=== PATIENT | male | born 1950 | race Caucasian/White ===

== ENCOUNTER 2019-08-18 11:18 | Emergency (ER) | payer MEDICARE, OTHER, SELFPAY ==
[2019-08-18 11:10] VITALS: BP 120/72; PULSE 46; RESP 16; TEMP 36.6; O2SAT 98
--- NOTE | 2019-08-18 11:25 | DI.RAD.S_ITS ---
PROCEDURE: XR CHEST 1V INDICATIONS: chest pain TECHNIQUE: One view of the chest was acquired. COMPARISON: None. FINDINGS: Surgical changes and devices: None. Lungs and pleura: Mild patchy bilateral perihilar opacities. No pleural effusions or pneumothorax. Mediastinum: Mediastinal contours appear normal. Heart size is normal. Bones and chest wall: No suspicious bony lesions. Overlying soft tissues appear unremarkable. IMPRESSION: Mild atypical pneumonia. Dictated by: Elke Means M.D. on 08/18/2019 at 11:44 Approved by: Elke Means M.D. on 08/18/2019 at 11:44
[2019-08-18 11:32] LABS: Add Manual Diff / Slide Review NO; Basophils Absolute Auto 0 /uL (0-100); Basophils Percent Auto 0.5 % (0-2); Eosinophils Absolute Auto 300 /uL (0-450); Eosinophils Percent Auto 4.8 % (2-4); Hematocrit 47.1 % (41-53); Hemoglobin 16.2 g/dL (13.5-17.5); Lymphocytes Absolute Auto 2200 /uL (1100-4500); Lymphocytes Percent Auto 33.9 % (25-40); Mean Corpuscular HGB Conc 34.3 % (30-36); Mean Corpuscular Hemoglobin 30.2 PG (26-34); Monocytes Absolute Auto 600 /uL (0-900); Monocytes Percent Auto 9.1 % (3-14); Neutrophils Absolute Auto 3300 /uL (1500-7000); Neutrophils Percent Auto 51.7 % (50-75); Platelet Count 201 X10^3/uL (150-400); Red Blood Cell Count 5.36 X10^6/uL (4.5-5.9); Red Cell Distribution Width 13.5 % (11.6-14.8); White Blood Cell Count 6.3 X10^3/uL (4.5-11.0)
[2019-08-18 11:47] LABS: Alanine Aminotransferase 39 IU/L (<50); Albumin 4.8 g/dL (3.5-5.0); Albumin Globulin Ratio 1.5 (1.0-2.8); Alkaline Phosphatase 81 U/L (38-126); Aspartate Aminotransferase 37 IU/L (17-59); BUN Creatinine Ratio 28.8 (6-22); Bilirubin Total 0.7 mg/dL (0.2-1.3); Blood Urea Nitrogen 23 mg/dL (9-20); Calcium 9.7 mg/dL (8.4-10.2); Carbon Dioxide 29 mmol/L (22-32); Chloride 102 mmol/L (98-107); Creatine Kinase 140 U/L (55-170); Estimated Glomerular Filt Rate > 60.0 mL/min (>60); Globulin 3.3 g/dL (1.7-4.1); Glucose 100 mg/dL (80-110); HEMOLYSIS < 15 (0-50); Lipase 68 U/L (23-300); Sodium 140 mmol/L (137-145); Total Protein 8.1 g/dL (6.3-8.2)
[2019-08-18 11:59] LABS: Troponin I < 0.012 ng/mL (0.01-0.034)
[2019-08-18 12:02] LABS: Creatine Kinase MB 2.81 ng/mL (<2.37)
--- NOTE | 2019-08-18 12:04 | ED_ITS ---
HPI - Chest Pain General Chief Complaint: Chest Pain Stated Complaint: Lightheaded w/CP Time Seen by Provider: 08/18/19 11:25 Source: patient Mode of arrival: EMS History of Present Illness HPI narrative: 68-year-old gentleman with a history of prostate cancer being monitored with active surveillance at this time presents after 2 episodes of near-syncope while on the [place] traveling from work this this morning. He reports that he was in his usual state of excellent health getting on the very shortly there after noticed that he was feeling weaker and almost going to pass out. His describes him as getting pale he describes himself as feeling slightly dyspneic there was no diaphoresis. When questioned about chest pain he describes a slight tightness in the left chest. He has had episodes of chest tightness previously and has been evaluated by a lead pony rider and was previously felt to be chest wall pain. He has no history of diabetes, hypertension, hyperlipidemia, obesity, tobacco abuse, alcohol use disorder. He went on to have 2 further episodes of near-syncope feeling with paleness mild dyspnea and associated bradycardia when checked by a staff aboard the [place]. He notes that he frequently has a bradycardic heart rate. He has done some distance training in the past now exercises regularly but not offered distance running or biking. He notes that heart rate in the 40s is not necessarily unusual for him. Related Data Home Medications Medication Instructions Recorded Confirmed aspirin 81 mg PO DAILY 08/18/19 08/18/19 cetirizine [Aller-Yazmin] 10 mg PO DAILY 08/18/19 08/18/19 finasteride 5 mg PO DAILY 08/18/19 08/18/19 Previous Rx's Medication Instructions Recorded azithromycin See Rx Instructions .ROUTE 08/18/19 .COMPLEX #6 tab Allergies Allergy/AdvReac Type Severity Reaction Status Date / Time No Known Drug Allergies Allergy Verified 08/18/19 12:20 Review of Systems Review of Systems Narrative: No fever cough cold chills or recent illnesses He does note that over the past 2-3 months he has been noticing more exertional dyspnea without any associated chest pain ROS Unobtainable: All systems reviewed & are unremarkable except as noted in HPI and below Patient History Surgical History Status post breast lumpectomy Family History Brother Age: 63 Stroke ASD (atrial septal defect) Father Cancer Mother Mental health problem Social History Smoking Status: Never smoker Smoking Status: Never smoker alcohol intake frequency: 0-2 drinks per day Substance Use Type: does not use Exam Narrative Exam Narrative: General: Healthy appearing, in no acute distress. Able to give a complete and coherent history. Well-nourished well-developed HEENT: Moist mucous membranes, normal sclera with reactive pupils, Neck: No JVD, supple Respiratory: Lungs are clear to auscultation, no wheezing no rales no rhonchi. Full and symmetrical air movement Cardiac: Regular rate and rhythm no murmurs no bruits Abdomen: Soft nontender good bowel tones, no flank pain Skin: Warm and dry, no rashes Neurologic: Grossly neurologically intact with no obvious asymmetries or abnormalities Extremities: No trauma, well perfused Psych: Cooperative, appropriate insight and affect Initial Vital Signs Initial Vital Signs: Vital Signs Temperature 97.8 F 08/18/19 11:10 Pulse Rate 46 L 08/18/19 11:10 Respiratory Rate 16 08/18/19 11:10 Blood Pressure 120/72 08/18/19 11:10 Pulse Oximetry 98 08/18/19 11:10 Course Orders Ordered: ED Orders 08/18/19 11:15 Complete Blood Count AUTO DIFF Stat Comprehensive Metabolic Panel Stat Lipase Stat Troponin & CK Cardiac Panel Stat 08/18/19 11:18 EKG-12 Lead Stat 08/18/19 11:25 XR chest 1V Stat 08/18/19 13:24 Troponin I Stat Sodium Chloride (Normal Saline 0.9%) 1,000 mls @ 150 mls/hr IV CONT AGUSTO Last Admin: 08/18/19 12:21 Dose: 150 mls/hr Documented by: BTONER Discontinued Medications Aspirin (Aspirin Chew) 324 mg PO NOW ONE Stop: 08/18/19 11:26 Last Admin: 08/18/19 11:45 Dose: Not Given Documented by: BTONER Vital Signs Vital signs: Vital Signs - 8 hr 08/18/19 11:10 08/18/19 12:30 08/18/19 13:57 Temperature 97.8 F Pulse Rate 46 L 43 L 46 L Respiratory Rate 16 9 L 18 Blood Pressure 120/72 Blood Pressure [Left Arm] 122/66 104/72 Pulse Oximetry 98 100 98 MDM - Chest Pain Medical Records Data Attestation: I reviewed the patient's medical records. Lab Data Attestation: I reviewed the patient's lab results. Lab results narrative: Initial troponin is unremarkable. Will repeat at 1:30 a.m.. Will continue cardiac monitoring. Showing episodes of asymptomatic bradycardia, sinus, into the mid 30s Repeat troponin is equally unremarkable Result diagrams: 08/18/19 11:15 08/18/19 11:15 Labs: Lab Results 08/18/19 08/18/19 08/18/19 Range/Units 11:15 11:15 13:24 WBC 6.3 (4.5-11.0) X10^3/uL RBC 5.36 (4.5-5.9) X10^6/uL Hgb 16.2 (13.5-17.5) g/dL Hct 47.1 (41-53) % MCV 88.0 (80-100) fL MCH 30.2 (26-34) PG MCHC 34.3 (30-36) % RDW 13.5 (11.6-14.8) % Plt Count 201 (150-400) X10^3/uL Neut % (Auto) 51.7 (50-75) % Lymph % (Auto) 33.9 (25-40) % Becker % (Auto) 9.1 (3-14) % Eos % (Auto) 4.8 H (2-4) % Baso % (Auto) 0.5 (0-2) % Neut # (Auto) 3300 (6324-9082) /uL Lymph # (Auto) 2200 (0188-2323) /uL Becker # (Auto) 600 (0-900) /uL Eos # (Auto) 300 (0-450) /uL Baso # (Auto) 0 (0-100) /uL Sodium 140 (137-145) mmol/L Potassium 4.0 (3.4-5.1) mmol/L Chloride 102 (98-107) mmol/L Carbon Dioxide 29 (22-32) mmol/L BUN 23 H (9-20) mg/dL Creatinine 0.80 (0.66-1.25) mg/dL Estimated GFR > 60.0 (>60) mL/min BUN/Creatinine Ratio 28.8 H (6-22) Glucose 100 (80-110) mg/dL Calcium 9.7 (8.4-10.2) mg/dL Total Bilirubin 0.7 (0.2-1.3) mg/dL AST 37 (17-59) IU/L ALT 39 (<50) IU/L Alkaline Phosphatase 81 (38-126) U/L Total Creatine Kinase 140 (55-170) U/L CK-MB (CK-2) 2.81 H (<2.37) ng/mL CK-MB (CK-2) Rel Index 2.0 (1.5-5.0) % Troponin I < 0.012 < 0.012 (0.01-0.034) ng/mL Total Protein 8.1 (6.3-8.2) g/dL Albumin 4.8 (3.5-5.0) g/dL Globulin 3.3 (1.7-4.1) g/dL Albumin/Globulin Ratio 1.5 (1.0-2.8) Lipase 68 (23-300) U/L Urine Dip Bedside Urine Glucose Negative Bedside Urine Bilirubin - Negative Bedside Urine Ketone - Negative Urine Specific [place] 1.005 Bedside Urine Occult Blood - Negative Bedside Urine pH 7.5 Bedside Urine Protein - Negative Bedside Urine Urobilinogen - Negative Bedside Urine Nitrite - Negative Bedside Urine Leukocytes - Negative Esterase Imaging Data Chest x-ray: Attestation: I personally reviewed and interpreted this imaging study as follows: Radiologist's impression: IMPRESSION: Mild atypical pneumonia. Dictated by: Elke Means M.D. on 08/18/2019 at 11:44 MDM Narrative Medical decision making narrative: 68-year-old gentleman who over the past number of weeks has noticed increasing exertional dyspnea. Official radiology read suggests an atypical pneumonia and there certainly are more findings in the right lung booth in the left in reviewing his chest x-ray. There is no significant findings on physical exam, no elevated white blood cell count and normal oxygenation. His troponin and repeat are unremarkable. His heart score is: HEART Pathway for Early Discharge in Acute Chest Pain from [facility] on 08/18/2019 RESULT SUMMARY: 1 points HEART Pathway Score Low risk 0.9?1.7% 30-day MACE Repeat troponin at 3 hours and if negative, discharge home with outpatient follow-up. INPUTS: History ?> 0 = Slightly suspicious EKG ?> 0 = Normal Age ?> 1 = 45-64 Risk factors ?> 0 = No known risk factors Initial troponin ?> 0 = ?normal limit Given the exertional dyspnea and possibility of an atypical pneumonia will place him on a course of azithromycin and suggest follow-up with his primary care physician once he has returned from his [place] trip. I think that the asymptomatic bradycardia is true yet unrelated to his episodes today and represents his baseline Discharge Plan Departure Patient Disposition: Home Clinical Impression: Atypical pneumonia, Bradycardia Instructions: DI for Chest Pain, DI for Atypical Pneumonia Activity Restrictions/Additional Instructions: Thank you for coming in today. Your heart rate is intermittently low however I believe that this is close to her baseline and is not causing your symptoms. Today I found no evidence of heart attack or acute heart syndromes. Your chest x-ray was interpreted as having an atypical pneumonia on the right side. If that is in fact the case, that may explain some of the shortness of breath you've experienced over the last few weeks. Am going to suggest that we place you on a course of azithromycin for this atypical pneumonia. I believe it's safe for you to continue on your travels to [place]. When he returned back home I would suggest that you follow-up with your primary care physician to review your dyspnea symptoms, the relative bradycardia and consider repeat chest x-ray to see if additional workup is needed regarding your lungs. I wish you the very best in hope you have safe travels Prescriptions: New azithromycin 250 mg tablet See Rx Instructions .ROUTE .COMPLEX Qty: 6 RF: 0 No Action cetirizine [Aller-Yazmin] 10 mg Tablet 10 mg PO DAILY RF: 0 aspirin 81 mg Tablet,Delayed Release (Dr/Ec) 81 mg PO DAILY RF: 0 finasteride 5 mg Tablet 5 mg PO DAILY RF: 0
[2019-08-18] MEDS: SODIUM CHLORIDE 0.9% 1,000 ML 150 ML IV (12:21)
[2019-08-18 12:30] VITALS: BP 122/66; PULSE 43; RESP 9; O2SAT 100
[2019-08-18 13:56] LABS: Troponin I < 0.012 ng/mL (0.01-0.034)
[2019-08-18 13:57] VITALS: BP 104/72; PULSE 46; RESP 18; O2SAT 98
[2019-08-18 15:17] VITALS: BP 101/83; PULSE 56; RESP 14; O2SAT 99
== END 2019-08-18 15:28 | disposition home or self-care (01) ==
PROVIDERS: Emergency Medicine; Emergency Provider Emergency Medicine
DX: J18.9 Pneumonia, unspecified organism (principal); R00.1 Bradycardia, unspecified; R07.9 Chest pain, unspecified
CPT/HCPCS: 36415; 71045; 80053; 81003; 82550; 82553; 83690; 84484; 85025; 93005; 93010; 96360; 96361; 99284; 99285

== ENCOUNTER → 2019-10-08 16:00 | Outpatient (CLI) | payer MEDICARE, OTHER, SELFPAY ==
--- NOTE | 2019-10-08 | DI.RAD.S_ITS ---
PROCEDURE: XR CHEST 2V INDICATIONS: Bradycardia/pneumonia? TECHNIQUE: 2 views of the chest were acquired. COMPARISON: [facility], , XR CHEST 1V, 08/18/2019, 11:35. FINDINGS: Surgical changes and devices: None. Lungs and pleura: Lungs are clear. No pleural effusions or pneumothorax. Mediastinum: Mediastinal contours are normal. Heart size is normal. Mild age-indeterminate anterior wedging of a lower thoracic vertebral body IMPRESSION: No acute disease Dictated by: Flaco Luu M.D. on 10/08/2019 at 16:56 Approved by: Flaco Luu M.D. on 10/08/2019 at 16:58
== END ==
PROVIDERS: PCP Family Medicine; Referring Provider Family Medicine; Visit Provider Family Medicine
DX: R00.1 Bradycardia, unspecified (principal); Z87.01 Personal history of pneumonia (recurrent)
CPT/HCPCS: 71046

== ENCOUNTER → 2021-05-31 08:03 | Outpatient (CLI) | payer MEDICARE, OTHER, SELFPAY ==
[2021-05-31 19:17] LABS: Add Manual Diff / Slide Review NO; Basophils Absolute Auto 0 /uL (0-100); Basophils Percent Auto 0.5 % (0-2); Eosinophils Absolute Auto 100 /uL (0-450); Hematocrit 43.6 % (41-53); Hemoglobin 14.8 g/dL (13.5-17.5); Lymphocytes Absolute Auto 1600 /uL (1100-4500); Lymphocytes Percent Auto 37.8 % (25-40); Mean Corpuscular Hemoglobin 30.1 PG (26-34); Mean Corpuscular Volume 88.5 fL (80-100); Monocytes Absolute Auto 300 /uL (0-900); Neutrophils Absolute Auto 2200 /uL (1500-7000); Neutrophils Percent Auto 50.7 % (50-75); Platelet Count 154 X10^3/uL (150-400); Red Blood Cell Count 4.92 X10^6/uL (4.5-5.9); Red Cell Distribution Width 13.4 % (11.6-14.8); White Blood Cell Count 4.3 X10^3/uL (4.5-11.0)
[2021-05-31 19:18] LABS: Alanine Aminotransferase 34 IU/L (<50); Albumin 3.8 g/dL (3.5-5.0); Albumin Globulin Ratio 1.4 (1.0-2.8); Alkaline Phosphatase 62 U/L (38-126); Aspartate Aminotransferase 33 IU/L (17-59); BUN Creatinine Ratio 22.2 (6-22); Bilirubin Total 0.5 mg/dL (0.2-1.3); Blood Urea Nitrogen 20 mg/dL (9-20); Carbon Dioxide 34 mmol/L (22-32); Chloride 104 mmol/L (98-107); Cholesterol 169 mg/dL (140-199); Estimated Glomerular Filt Rate > 60.0 mL/min (>60); Globulin 2.8 g/dL (1.7-4.1); Glucose 91 mg/dL (80-110); HDL Cholesterol 54 mg/dL (40-60); HEMOLYSIS < 15 (0-50); LDL Cholesterol Calculated 103 mg/dL (<100); Potassium 4.4 mmol/L (3.4-5.1); Sodium 140 mmol/L (137-145); Total Protein 6.6 g/dL (6.3-8.2); Triglycerides 58 mg/dL (35-150)
== END ==
PROVIDERS: PCP Physician Assistant Medical; Visit Provider Physician Assistant Medical
DX: C61 Malignant neoplasm of prostate (principal); G47.33 Obstructive sleep apnea (adult) (pediatric); R07.89 Other chest pain; E78.5 Hyperlipidemia, unspecified
CPT/HCPCS: 80053; 80061; 85025

== ENCOUNTER → 2022-05-08 12:04 | Outpatient (CLI) | payer MEDICARE, OTHER, SELFPAY ==
[2022-05-08 20:08] LABS: BUN Creatinine Ratio 26.8 (6-22); Blood Urea Nitrogen 22 mg/dL (9-20); Calcium 9.1 mg/dL (8.4-10.2); Carbon Dioxide 30 mmol/L (22-32); Chloride 103 mmol/L (98-107); Estimated Glomerular Filt Rate > 60 mL/min (>60); Glucose 80 mg/dL (80-110); HEMOLYSIS < 15 (0-50); Potassium 4.7 mmol/L (3.4-5.1); Sodium 139 mmol/L (137-145)
== END ==
PROVIDERS: PCP Family Medicine; Visit Provider Physician Assistant
DX: Z01.812 Encounter for preprocedural laboratory examination (principal)
CPT/HCPCS: 80048

== ENCOUNTER → 2022-05-10 18:48 | Outpatient (CLI) | payer MEDICARE, OTHER, SELFPAY ==
--- NOTE | 2022-05-10 18:53 | DI.MRI.S_ITS ---
PROCEDURE: MR THORACIC SPINE WO/W CON INDICATIONS: Upper T Spine pain wedge compression deformity T10 on xray TECHNIQUE: Noncontrast sagittal T1 spin echo and T2 fast spin echo, sagittal STIR, axial T1 and T2 fast spin echo through the thoracic spine. After the administration of contrast, axial and sagittal T1 spin echo with fat saturation through the thoracic spine. COMPARISON: None. FINDINGS: Image quality: Excellent. Alignment and curvature: There is normal bony alignment. Marrow: Marrow is of normal overall signal. No acute vertebral body compression fractures. Chronic compressions of T7, T8, T9, and T10 result in increased thoracic kyphosis. Spinal cord: Visualized spinal cord is of normal signal and size, without abnormal enhancement. Paraspinous soft tissues: No paravertebral masses or abnormal enhancement. Miscellaneous: Central canal and foramina appear widely patent at all scanned levels. There is a mild central posterior disc protrusion at T3-T4 without canal stenosis. Incidental note is made of the presence of a Bochdalek's hernia on the right. IMPRESSION: 1. Multiple chronic osteoporotic compressions. 2. No canal stenosis or foraminal stenosis. 3. No acute compressions. No evidence of malignant marrow replacement. Comment: Consider DEXA bone densitometry in this patient. Dictated by: Chepe Tolentino M.D. on 05/11/2022 at 8:44 Approved by: Chepe Tolentino M.D. on 05/11/2022 at 8:56
--- NOTE | 2022-05-10 18:53 | DI.MRI.S_ITS ---
PROCEDURE: MR CERVICAL SPINE WO/W CON INDICATIONS: Progressive neck pain with radiculopathy; arthritic neck TECHNIQUE: Noncontrast sagittal T1 spin echo and T2 fast spin echo, sagittal STIR, foraminal oblique sagittal T2 fast spin echo, axial gradient echo or T2 fast spin echo through the cervical spine. After the administration of contrast, axial and sagittal T1 spin echo with fat saturation through the cervical spine. COMPARISON: None. FINDINGS: Image quality: Patient motion artifact. Alignment and curvature: Trace degenerative retrolisthesis of C6 on C7. Chronic mild anterior vertebral body height loss involving C6. Marrow: Marrow is normal in overall signal, without suspicious enhancement. Spinal cord: Visualized spinal cord has normal size and signal. No cerebellar tonsillar herniation. No abnormal intramedullary enhancement. Paraspinous soft tissues: No paravertebral masses or suspicious enhancement. C2-3: Bilateral facet hypertrophy. No canal stenosis or significant foraminal stenosis. C3-4: AP diameter of the canal is 11.3 mm. Bilateral uncovertebral joint hypertrophy. Bilateral facet hypertrophy. Moderate to severe bilateral foraminal narrowing with a degree of bilateral foraminal C4 nerve root impingement. C4-5: Posterior disc post osteophyte. There is indentation on the ventral cord. AP diameter of the canal is 9.2 mm. There is large left uncovertebral joint hypertrophy resulting in severe left lateral recess stenosis. There is bilateral uncovertebral joint hypertrophy and facet hypertrophy. There is severe right foraminal narrowing and marked left foraminal narrowing with bilateral foraminal nerve root impingement. C5-6: Mild disc bulge. Borderline canal stenosis. Bilateral uncovertebral joint hypertrophy. Bilateral facet hypertrophy. Moderate right foraminal narrowing and moderate to severe left foraminal narrowing. There is a degree of left foraminal C6 nerve root impingement. C6-7: Posterior disc bulge indents on the cord. Canal stenosis is underestimated on choice of axial plane it is likely moderate. There is large right paracentral disc osteophyte complex which markedly narrows the right side of the canal, markedly impinging on right-sided structures. This is difficult to see, and is best appreciated on right oblique sagittal images 13 and 12 of series 8. It is also identified on post gadolinium axial image 31/11. There is bilateral uncovertebral joint hypertrophy. It is marked on the right. There is bilateral facet hypertrophy. There is moderate to severe bilateral foraminal narrowing with bilateral foraminal C7 nerve root impingement. C7-T1: Disc bulge. No canal stenosis. Bilateral uncovertebral joint hypertrophy. At least moderate bilateral foraminal narrowing with flattening deformity on the exiting bilateral C8 nerve roots. IMPRESSION: 1. Diffuse cervical spondylitic change. 2. Canal stenosis is mild at C4-C5 and likely moderate at C6-C7. 3. Large right paracentral disc osteophyte complex at C6-C7 results in marked stenosis of the right side of the canal and marked impingement on right sided structures. 3. Multilevel facet arthropathy and uncovertebral joint hypertrophy result in significant multilevel foraminal narrowing as described above. Dictated by: Chepe Tolentino M.D. on 05/11/2022 at 8:57 Approved by: Chepe Tolentino M.D. on 05/11/2022 at 9:28
== END ==
PROVIDERS: PCP Family Medicine; Referring Provider Family Medicine; Visit Provider Family Medicine
DX: M84.48XA Pathological fracture, other site, initial encounter for fracture (principal); M54.2 Cervicalgia; M54.10 Radiculopathy, site unspecified; M54.14 Radiculopathy, thoracic region; M54.6 Pain in thoracic spine; M46.82 Other specified inflammatory spondylopathies, cervical region; M48.02 Spinal stenosis, cervical region; M25.78 Osteophyte, vertebrae
CPT/HCPCS: 72156; 72157; A9579

== ENCOUNTER → 2022-05-28 11:14 | Outpatient (CLI) | payer MEDICARE, OTHER, SELFPAY | PROVIDERS: PCP Family Medicine; Referring Provider Physician Assistant; Visit Provider Physician Assistant | DX: C61 Malignant neoplasm of prostate; M85.89 Other specified disorders of bone density and structure, multiple sites | CPT/HCPCS: 77080 ==

== ENCOUNTER → 2022-06-18 11:15 | Outpatient (CLI) | payer MEDICARE, OTHER, SELFPAY ==
--- NOTE | 2022-06-18 12:08 | DI.MRI.S_ITS ---
PROCEDURE: MR PELIS WO/W CON INDICATIONS: Malignant neoplasm of prostate TECHNIQUE: Coronal HASTE, axial T1 FSE with fat saturation, 3-plane nonbreath-hold T2 FSE. After the administration of contrast, dynamic axial, delayed axial and coronal VIBE or 2-D FLASH with fat saturation through the pelvis. Optional diffusion weighted imaging and ADC may be performed. COMPARISON: [facility], MR, MR PELVIS PROSTATE SCREENING PROTOCOL, 02/22/2020, 12:03. FINDINGS: Image quality: Diffusion weighted and dynamic contrast enhanced images are diagnostic. Prostate: Gland size is 5.6 x 4.9 x 4 cm; ellipsoid gland volume is 57 mL. No significant foci of intrinsic T1 hyperintensity to suggest hemorrhage. Multiple BPH nodules. No focal areas of ADC hypointensity in the peripheral zone. No suspicious areas of T2 hypointensity within the transitional zone. No PI-RADS 4 or 5 observations. Genitourinary system: Bladder is not distended. Bladder has a trabeculated appearance. Distal ureters are non distended. Bowel and peritoneum: No pathologic free pelvic fluid. Inferior colon and small bowel loops are normal in caliber. Diverticulosis. Nodes and vessels: No pelvic or inguinal adenopathy by size criteria. Iliac vessels are normal in caliber. Soft tissues: No inguinal hernias. Bones: Marrow demonstrates normal overall signal, without lesions to suggest metastases. IMPRESSION: 1. Prostatomegaly with multiple BPH nodules. 2. No PI-RADS 4 or 5 observation for targeted biopsy. 3. No enlarged lymph nodes. Dictated by: Geoffrey Núñez M.D. on 06/18/2022 at 17:45 Approved by: Geoffrey Núñez M.D. on 06/18/2022 at 17:53
== END ==
PROVIDERS: PCP Family Medicine; Referring Provider Urology; Visit Provider Urology
DX: C61 Malignant neoplasm of prostate (principal)
CPT/HCPCS: 72197; A9579

== ENCOUNTER → 2023-11-14 07:59 | Outpatient (CLI) | payer MEDICARE, OTHER, SELFPAY ==
[2023-11-14 20:27] LABS: HDL Cholesterol 52 mg/dL (40-60)
[2023-11-14 20:32] LABS: Cholesterol 180 mg/dL (140-199); Glucose 93 mg/dL (80-110); LDL Cholesterol Calculated 110 mg/dL (<100); Triglycerides 92 mg/dL (35-150)
[2023-11-14 21:21] LABS: Hep C Virus Ab w/Reflex Quant NEGATIVE s/c (NEGATIVE)
== END ==
PROVIDERS: PCP Family Medicine; Visit Provider Family Medicine
DX: Z13.1 Encounter for screening for diabetes mellitus (principal); Z13.6 Encounter for screening for cardiovascular disorders; Z11.59 Encounter for screening for other viral diseases; Z13.220 Encounter for screening for lipoid disorders
CPT/HCPCS: 80061; 82947; 86803

== ENCOUNTER → 2024-02-16 12:07 | Outpatient (CLI) | payer MEDICARE, OTHER, SELFPAY ==
[2024-02-16 12:53] LABS: Influenza A - CEPHEID Flu A NEGATIVE (NEGATIVE); Influenza B - CEPHEID Flu B NEGATIVE (NEGATIVE); Respiratory Syncytial Virus Negative (Negative)
[2024-02-16 12:57] LABS: COVID-19 CEPHEID 4-PLEX PCR Negative (Negative)
== END ==
PROVIDERS: PCP Family Medicine; Visit Provider Physician Assistant Surgical
DX: R50.9 Fever, unspecified (principal)
CPT/HCPCS: 0241U

== ENCOUNTER → 2024-02-16 12:40 | Outpatient (CLI) | payer MEDICARE, OTHER, SELFPAY ==
--- NOTE | 2024-02-16 12:43 | DI.RAD.S_ITS ---
PROCEDURE: XR CHEST 2V INDICATIONS: Wheezing, cough, dyspnea TECHNIQUE: 2 views of the chest were acquired. COMPARISON: [facility], CR, XR CHEST 2 VIEWS, 08/18/2020, 14:50. (Other relevant images are not available for review from the archive at the time of this dictation.) FINDINGS: Surgical changes and devices: None. Lungs and pleura: Lungs are clear. No pleural effusions or pneumothorax. Mediastinum: The cardiac contours are within normal limits. The aorta demonstrates calcification and tortuosity. Bones and chest wall: No suspicious bony abnormalities. Multiple levels of chronic anterior wedge deformity can be seen within the thoracic spine, with associated accentuated thoracic kyphosis. Soft tissues appear unremarkable. IMPRESSION: No significant chest plain film abnormality is seen for age. Dictated by: Louis Sewell M.D. on 02/16/2024 at 11:57 Approved by: Louis Sewell M.D. on 02/16/2024 at 12:01
== END ==
PROVIDERS: PCP Family Medicine; Referring Provider Physician Assistant Surgical; Visit Provider Physician Assistant Surgical
DX: R06.00 Dyspnea, unspecified (principal); R06.2 Wheezing; R05.9 Cough, unspecified; R50.9 Fever, unspecified
CPT/HCPCS: 0241U; 71046

== ENCOUNTER → 2024-10-29 09:07 | Outpatient (CLI) | payer MEDICARE, OTHER, SELFPAY ==
--- NOTE | 2024-10-29 09:09 | DI.ECHO.S_ITS ---
[facility] : : [address] : : [place] : : [id number] : : Phone: [phone] Echocardiogram Report + + :Name: MEGHAN NEFF Study Date: 10/29/2024 Height: 69.5 in: [facility] ReadingLocation: Weight: 170 lb : : Gender: Male BSA: 1.9 m2 : :: 1950 Age: 74 yrs BP: 116/76 mmHg: :Reason For Study: ATRIAL FIBRILLATION : :Ordering Physician: THAI, : :GABINO Performed By: Madelyn Kaufman : :Referring: GABINO ANDRE : + + Interpretation Summary 1. The left ventricular contractility is normal. Estimate ejection fraction greater than 60% with no segmental wall motion abnormalities. No LVH. Normal diastolic function. 2. The right ventricular contractility is normal. Prominent moderator band. 3. Mild biatrial enlargement. Borderline dilated right ventricle. The left ventricular cavity is of normal size. 4. Trace to mild mitral regurgitation. 5. No obvious intracardiac shunts. 6. No obvious intracardiac masses nor thrombi. 7. No hemodynamically significant pericardial effusion. Conclusion: Normal biventricular function with no significant valvular abnormalities. When compared with previous echocardiogram, no significant changes have occurred. Procedure: A two-dimensional transthoracic echocardiogram with color flow and Doppler was performed. The study quality was technically adequate. Comparison is made with the echocardiogram of 01/28/2020. The patient was in sinus bradycardia with heart rates between 38-44 bpm during the exam. Left Ventricle: The left ventricle is normal in size and wall thickness. The ejection fraction is estimated to be 60-65%. Right Ventricle: The right ventricle is borderline dilated. The right ventricular systolic function is normal. Atria: The left atrium is mildly dilated. The right atrium is mildly dilated. There is no Doppler evidence for an interatrial shunt. Mitral Valve: There is mild mitral valve prolapse. There is mild mitral regurgitation. Aortic Valve: The aortic valve is trileaflet. The aortic valve opens well. There is no aortic valve stenosis. No aortic regurgitation is present. Tricuspid Valve: The tricuspid valve leaflets are thin and pliable. There is trace tricuspid regurgitation. Pulmonary artery pressures cannot be estimated because of the lack of a measurable TR jet velocity. Pulmonic Valve: The pulmonic valve leaflets are thin and pliable; valve motion is normal. There is trace pulmonic regurgitation. Great Vessels: The aortic root is normal size. The dimensions of the ascending aorta are normal. The inferior vena cava was not well visualized. Pericardium/ Pleura There is no pericardial effusion. There is no pleural effusion. MMode/2D Measurements & Calculations LVIDd: 4.8 cm LVOT diam: 2.2 cm LVIDs: 3.1 cm Ao root diam: 3.6 cm FS: 36.9 % asc Aorta Diam: 3.7 cm EPSS: 0.24 cm Ao Arch Diam (Prox Trans): 3.2 cm IVSd: 0.93 cm LVPWd: 0.77 cm LV sanchez. diameter/BSA (cm/m^2): 2.5 LV sys. diameter/BSA (cm/m^2): 1.6 LA A2 area: 25.3 cm2 RA long axis: 6.0 cm LA A4 area: 22.8 cm2 RA area: 23.9 cm2 LA length (vol): 6.2 cm RA vol: 80.8 ml LA vol: 78.7 ml RA : 41.6 ml/m2 LA vol index: 40.6 ml/m2 RVD1 (basal): 4.3 cm TAPSE: 2.3 cm Doppler Measurements & Calculations Ao V2 max: 133.7 cm/sec LVOT Max Isreal: 123.7 cm/sec Ao V2 mean: 93.5 cm/sec LV V1 max P.1 mmHg Ao max P.1 mmHg LV V1 VTI: 28.8 cm Ao mean P.9 mmHg WILLIAM(I,D): 3.6 cm2 Ao V2 VTI: 30.6 cm WILLIAM(V,D): 3.5 cm2 sev ratio: 0.94 WILLIAM indexed to BSA (cm^2/m^2): 1.9 MV E max isreal: 67.8 cm/sec PA V2 max: 75.8 cm/sec MV A max isreal: 38.2 cm/sec PA V2 mean: 50.2 cm/sec MV E/A: 1.8 PA mean P.2 mmHg Med Peak E' Isreal: 8.3 cm/sec PA pr(Accel): 31.0 mmHg E/E' med: 8.2 Lat Peak E' Isreal: 11.2 cm/sec E/E' lat: 6.0 E/e' average: 7.1 MV dec time: 0.26 sec SV(LVOT): 110.2 ml Reading Physician:NKECHI
== END ==
PROVIDERS: PCP Family Medicine; Referring Provider Family Medicine; Visit Provider Family Medicine
DX: I34.0 Nonrheumatic mitral (valve) insufficiency (principal); I34.1 Nonrheumatic mitral (valve) prolapse; I48.91 Unspecified atrial fibrillation; G47.33 Obstructive sleep apnea (adult) (pediatric)
CPT/HCPCS: 93306

== ENCOUNTER → 2024-11-04 10:29 | Outpatient (CLI) | payer MEDICARE, OTHER, SELFPAY ==
[2024-11-04 20:14] LABS: Add Manual Diff / Slide Review NO; Basophils Absolute Auto 0 /uL (0-100); Basophils Percent Auto 0.5 % (0-2); Eosinophils Absolute Auto 100 /uL (0-450); Eosinophils Percent Auto 2.3 % (2-4); Hemoglobin 15.3 g/dL (13.5-17.5); Lymphocytes Absolute Auto 1400 /uL (1100-4500); Mean Corpuscular HGB Conc 33.9 % (30-36); Mean Corpuscular Hemoglobin 29.7 PG (26-34); Mean Corpuscular Volume 87.7 fL (80-100); Monocytes Absolute Auto 500 /uL (0-900); Monocytes Percent Auto 8.8 % (3-14); Neutrophils Absolute Auto 3200 /uL (1500-7000); Neutrophils Percent Auto 61.4 % (50-75); Platelet Count 177 X10^3/uL (150-400); Red Blood Cell Count 5.13 X10^6/uL (4.5-5.9); Red Cell Distribution Width 13.9 % (11.6-14.8); White Blood Cell Count 5.2 X10^3/uL (4.5-11.0)
[2024-11-04 20:38] LABS: Blood Urea Nitrogen 21 mg/dL (9-20); Calcium 9.2 mg/dL (8.4-10.2); Carbon Dioxide 30 mmol/L (22-32); Chloride 102 mmol/L (98-107); Cholesterol 188 mg/dL (140-199); Estimated Glomerular Filt Rate > 60 mL/min (>60); Glucose 79 mg/dL (80-110); HDL Cholesterol 58 mg/dL (40-60); HEMOLYSIS < 15 (0-50); LDL Cholesterol Calculated 114 mg/dL (<100); Potassium 4.5 mmol/L (3.4-5.1); Sodium 140 mmol/L (137-145); Triglycerides 80 mg/dL (35-150)
[2024-11-04 21:11] LABS: Prostate Specific Antigen Scrn 7.73 ng/mL (0.1-4.0)
== END ==
PROVIDERS: PCP Family Medicine; Visit Provider Family Medicine
DX: E78.2 Mixed hyperlipidemia (principal); I48.91 Unspecified atrial fibrillation; Z12.5 Encounter for screening for malignant neoplasm of prostate; G47.33 Obstructive sleep apnea (adult) (pediatric)
CPT/HCPCS: 80048; 80061; 85025; G0103

== ENCOUNTER → 2025-03-18 13:27 | Outpatient (CLI) | payer MEDICARE, OTHER, SELFPAY ==
--- NOTE | 2025-03-18 13:30 | DI.NM.S_ITS ---
PROCEDURE: NM MALACHI PERF SPECT REST & STR Rest and exercise myocardial perfusion SPECT with gated imaging and ejection fraction RADIOPHARMACEUTICAL: 25.8 mCi Tc-99m sestamibi IV at rest and 27.1 mCi Tc-99m sestamibi IV at peak exercise. A 2 day-protocol was performed. INDICATIONS: ABNORM EKG PQRS ATTESTATIONS: Measure 322 - Is this imaging test primarily performed on a low-risk surgery patient for preoperative evaluation within 30 days preceding their low-risk non-cardiac surgery? Low-risk surgery is defined as cardiac or myocardial infarction less than 1%, including (but not limited to) endoscopic procedures, superficial procedures, cataract surgery, and excisional breast surgery: Answer: No Measure 323 - Is this imaging test performed primarily for the monitoring of an asymptomatic patient who had percutaneous coronary intervention on the visit date or within 2 years of the visit date? Answer: No Measure 324 - Is this imaging test performed primarily for the initial detection and risk assessment on an asymptomatic, low coronary heart disease patient? Low CHD risk definition = clinicians should consider the maximum number of available patient factors used to estimate risk based on [place] (ATP III criteria), typically age, gender, diabetes, smoking status, and use of blood pressure medication, and integrate age appropriate estimates for missing elements, such as LDL or standard blood pressure. Answer: No TECHNIQUE: Radiopharmaceutical was injected at peak stress test, and also at rest. SPECT images were obtained. SPECT myocardial perfusion images were displayed in short axis, horizontal long axis, and vertical long axis views. Gated images were reviewed using [employer] software. COMPARISON: None. CARDIAC STRESS: A standard [place] treadmill exercise tolerance test was performed by the patient under the supervision of an attending staff. The patient exercised for 10 minutes and 34 seconds; functional aerobic impairment (HERMINIO) is -56%. Hemodynamic data: There is normal blood pressure and heart rate response to exercise stress. Patient achieved 104% of maximum predicted heart rate at peak exercise. Symptoms: Patient denied chest pain during exercise. EKG: No diagnostic EKG changes of ischemia; frequent PVCs noted at peak stress in early recovery. Not available FINDINGS: Raw data: There is good myocardial labeling by radiotracer. No significant motion artifacts. Utnu-in-hihiy ratio is not available (normal is less than 0.38 for sestamibi tracer, and less than 0.50 for thallium tracer). Left ventricle function: Gated images demonstrate normal left ventricle wall thickening. No segmental wall motion abnormality. No transient ischemic dilation; TID is 0.87 (normal less than 1.3). The left ventricle resting end-diastolic volume is 117 mL. Left ventricle stress ejection fraction is 7%; normal values are above 45%. Myocardial perfusion: Rest images had mild hypoperfusion in the basal to mid inferior segment. The same perfusion defect was noted in the stress images. However prone images had no perfusion defects. These findings are most likely due to attenuation. IMPRESSION: 1. Negative exercise myocardial perfusion scan for ischemia and infarction. 2. No significant changes when compared with previous stress test. 3. Excellent exercise tolerance. Dictated by: Harish Gutierrez M.D. on 03/25/2025 at 16:39 Approved by: Harish Gutierrez M.D. on 03/25/2025 at 16:44
== END ==
LOC: NUCM 13:28
PROVIDERS: PCP Family Medicine; Referring Provider Family Medicine; Visit Provider Internal Medicine Cardiovascular Disease
DX: I48.0 Paroxysmal atrial fibrillation (principal); R94.31 Abnormal electrocardiogram [ECG] [EKG]
CPT/HCPCS: 78452; 93017; A9502